=== PATIENT | male | born 1950 | race Two or more races ===

== ENCOUNTER 2020-09-17 00:55 | Inpatient (IN) | payer OTHER, MEDICAID ==
[~2020-09-17] VITALS: Ht 177.8 cm; Wt 80.3 kg
[2020-09-17 02:07] LABS: Basophils # (auto) 0.1 10 ^3/uL (0-0.2); Basophils % (auto) 0.8 % (0.0-2.0); Eosinophils # (auto) 0.2 10 ^3/uL (0-0.8); Eosinophils % (auto) 2.6 % (0.0-7.0); Hematocrit 35.2 % (41.0-53.0); Hemoglobin 12.1 g/dL (13.5-17.5); Lymphocytes # (auto) 2.6 10 ^3/uL (0.4-5.4); Lymphocytes % (auto) 40.1 % (10.0-50.0); Mean Corpuscular Hemoglobin 33.7 pg (28.0-32.0); Mean Corpuscular Hgb Conc. 34.3 g/dL (32.0-36.0); Mean Corpuscular Volume 98.3 fL (80.0-100.0); Monocytes # (auto) 0.6 10 ^3/uL (0-1.3); Monocytes % (auto) 9.2 % (0.0-12.0); Neutrophils # (auto) 3.1 10 ^3/uL (1.6-8.6); Neutrophils % (auto) 47.3 % (37.0-80.0); Nucleated Red Blood Cells % 0.1 %; Platelet Count (auto) 152 10^3/uL (140-450); Red Blood Cells 3.58 10^6/uL (4.5-5.90); Red Cell Distribution Width 12.4 % (11.8-14.3); White Blood Cell 6.6 10^3/uL (4.4-10.8)
[2020-09-17 02:26] LABS: Calcium 9.3 mg/dL (8.5-10.1); Magnesium 2.2 mg/dL (1.6-2.6)
[2020-09-17 02:32] LABS: BUN/Creatinine Ratio 17.8; Bilirubin, Total 0.3 mg/dL (0.2-1.0); Total Protein 8.1 g/dL (6.4-8.2)
[2020-09-17] MEDS ORDERED: ASPirin 325 MG TAB PO ONE (02:45)
[2020-09-17] MEDS ORDERED: FUROSEMIDE 40 MG/4 ML VIAL IV ONE (04:00)
[2020-09-17] MEDS ORDERED: MORPHINE SULF INJ 2 MG/ML SYRINGE 1ML IV PRN (05:30)
[2020-09-17] MEDS ORDERED: NITROGLYCERIN 0.4 MG SL TAB SL PRN (05:30)
[2020-09-17] MEDS ORDERED: ONDANSETRON HCL 4 MG/2 ML VIAL IV PRN (05:30)
[2020-09-17] MEDS ORDERED: DEXTROSE (50%) 50ML SYRG IV PRN (05:30)
[2020-09-17] MEDS ORDERED: ACETAMINOPHEN 325 MG TAB PO PRN (05:30)
[2020-09-17] MEDS: FUROSEMIDE 20 MG/2 ML VIAL IV SCH ×2 (06:00→17:55)
[2020-09-17] MEDS: InsuLIN REG 1unit/0.01ml Soln (100units/ml) SC SCH ×4 (06:00→23:41)
[2020-09-17] MEDS: ACCU-CHEK COMFORT CURVE STRIP VI SCH ×4 (06:00→23:41)
[2020-09-17] MEDS ORDERED: CARVEDILOL 3.125 MG TAB PO SCH (10:00)
[2020-09-17] MEDS: BENAZEPRIL HCL 10 MG TAB PO SCH (10:00)
[2020-09-17] MEDS: PANTOPRAZOLE 40 MG TAB PO SCH (10:16)
[2020-09-17] MEDS: ASPirin 81 mg TAB PO SCH (10:16)
[2020-09-17] MEDS ORDERED: METF-929 PO (10:21)
[2020-09-17] MEDS ORDERED: LORA-622 PO (10:21)
[2020-09-17] MEDS ORDERED: BENA5TAB5 PO (10:21)
[2020-09-17] MEDS ORDERED: ASPI-498 PO (10:21)
[2020-09-17] MEDS ORDERED: TERA10CA36 PO (10:21)
[2020-09-17] MEDS ORDERED: ATOR20TA50 PO (10:21)
[2020-09-17] MEDS ORDERED: CHOL20007 PO (10:21)
[2020-09-17] MEDS ORDERED: APIXABAN 5 MG TAB PO ONE (11:00)
[2020-09-17 20:00] VITALS: BP 102/58
[2020-09-17] MEDS: APIXABAN 5 MG TAB PO SCH (20:57)
[2020-09-17] MEDS: CARVEDILOL 3.125 MG TAB PO SCH (20:57)
[2020-09-17] MEDS: ATORVASTATIN 20 MG TAB PO SCH (20:57)
[2020-09-18] MEDS: ACCU-CHEK COMFORT CURVE STRIP VI SCH ×3 (05:26→18:38)
[2020-09-18] MEDS: InsuLIN REG 1unit/0.01ml Soln (100units/ml) SC SCH ×3 (05:31→18:37)
[2020-09-18] MEDS: FUROSEMIDE 20 MG/2 ML VIAL IV SCH ×2 (05:31→18:33)
[2020-09-18 08:59] LABS: Basophils # (auto) 0 10 ^3/uL (0-0.2); Basophils % (auto) 0.7 % (0.0-2.0); Eosinophils # (auto) 0.1 10 ^3/uL (0-0.8); Eosinophils % (auto) 1.5 % (0.0-7.0); Hematocrit 36.6 % (41.0-53.0); Mean Corpuscular Hemoglobin 32.7 pg (28.0-32.0); Mean Corpuscular Hgb Conc. 32.8 g/dL (32.0-36.0); Mean Corpuscular Volume 99.7 fL (80.0-100.0); Monocytes # (auto) 0.4 10 ^3/uL (0-1.3); Monocytes % (auto) 7.2 % (0.0-12.0); Neutrophils # (auto) 3.3 10 ^3/uL (1.6-8.6); Neutrophils % (auto) 56.6 % (37.0-80.0); Platelet Count (auto) 147 10^3/uL (140-450); Red Blood Cells 3.67 10^6/uL (4.5-5.90); White Blood Cell 5.9 10^3/uL (4.4-10.8)
[2020-09-18 09:00] VITALS: BP 98/62
[2020-09-18] MEDS: ASPirin 81 mg TAB PO SCH (09:07)
[2020-09-18] MEDS: CARVEDILOL 3.125 MG TAB PO SCH ×2 (09:08→22:00)
[2020-09-18] MEDS: APIXABAN 5 MG TAB PO SCH ×2 (09:10→22:00)
[2020-09-18] MEDS: BENAZEPRIL HCL 10 MG TAB PO SCH (09:11)
[2020-09-18] MEDS: PANTOPRAZOLE 40 MG TAB PO SCH (09:13)
[2020-09-18 09:25] LABS: Calcium 8.9 mg/dL (8.5-10.1); Potassium 4.2 mmol/L (3.5-5.1)
[2020-09-18 09:30] LABS: Albumin 3.8 g/dL (3.4-5.0); Bilirubin, Total 0.4 mg/dL (0.2-1.0); Magnesium 2.3 mg/dL (1.6-2.6); Total Protein 8.1 g/dL (6.4-8.2)
[2020-09-18 13:00] VITALS: BP 122/76
[2020-09-18] MEDS ORDERED: CARV6.2551 PO (13:09)
[2020-09-18 13:52] LABS: Alcohol, Urine < 3.0 mg/dL (0-10); Amphetamine Screen, Urine NEGATIVE (NEGATIVE); Barbiturate Scree,Urine NEGATIVE (NEGATIVE); Benzodiazephine Screen, Urine NEGATIVE (NEGATIVE); Cannabinoid Screen, Urine NEGATIVE (NEGATIVE); Cocaine Screen, Urine NEGATIVE (NEGATIVE); Opiate Scree,Urine NEGATIVE (NEGATIVE); Phencyclidine Screen, Urine NEGATIVE (NEGATIVE)
[2020-09-18 17:20] VITALS: BP 109/79
[2020-09-18] MEDS: INSULIN LANTUS (GLARGINE) 1 /0.01ml (100units/ml) SC SCH (22:00)
[2020-09-18] MEDS: ATORVASTATIN 20 MG TAB PO SCH (22:00)
[2020-09-18 22:30] VITALS: BP 122/96
[2020-09-19 05:01] VITALS: BP 112/87
[2020-09-19] MEDS: ACCU-CHEK COMFORT CURVE STRIP VI SCH ×4 (06:27→18:25)
[2020-09-19] MEDS: InsuLIN REG 1unit/0.01ml Soln (100units/ml) SC SCH ×4 (06:41→18:23)
[2020-09-19] MEDS: FUROSEMIDE 20 MG/2 ML VIAL IV SCH ×2 (06:41→18:25)
[2020-09-19 06:57] LABS: Potassium 4.8 mmol/L (3.5-5.1)
[2020-09-19 07:03] LABS: Calcium 9.4 mg/dL (8.5-10.1)
[2020-09-19 09:00] VITALS: BP 121/91
[2020-09-19] MEDS: ASPirin 81 mg TAB PO SCH (11:34)
[2020-09-19] MEDS: CARVEDILOL 3.125 MG TAB PO SCH ×2 (11:35→22:00)
[2020-09-19] MEDS: PANTOPRAZOLE 40 MG TAB PO SCH (11:36)
[2020-09-19] MEDS: BENAZEPRIL HCL 10 MG TAB PO SCH (11:36)
[2020-09-19] MEDS ORDERED: ACETYLCYSTEINE ORAL for CIN 20%(200MG/ML) 4ML PO ONE (12:30)
[2020-09-19 13:00] VITALS: BP 95/68
[2020-09-19 16:47] VITALS: BP 99/68
[2020-09-19] MEDS: ATORVASTATIN 20 MG TAB PO SCH (21:56)
[2020-09-19 22:00] VITALS: BP 92/64
[2020-09-19] MEDS ORDERED: SODIUM CHLORIDE 0.9% 500 ML IV ONE (22:00)
[2020-09-19] MEDS: INSULIN LANTUS (GLARGINE) 1 /0.01ml (100units/ml) SC SCH (22:04)
[2020-09-19] MEDS: ACETYLCYSTEINE ORAL for CIN 20%(200MG/ML) 4ML PO SCH (22:48)
[2020-09-19 23:11] LABS: Urine Bacteria FEW /hpf (None Seen); Urine Blood Negative /uL (Negative); Urine Hyaline Cast FEW /lpf (0 - 2); Urine Mucus FEW (None Seen); Urine Specific Gravity 1.013 (1.001-1.035); Urine WBC 1 /hpf (0 - 3)
[2020-09-19 23:25] LABS: Protein, Urine 8.7 mg/dL (0.0-11.9)
[2020-09-20] MEDS: ACCU-CHEK COMFORT CURVE STRIP VI SCH ×4 (00:25→18:12)
[2020-09-20] MEDS: InsuLIN REG 1unit/0.01ml Soln (100units/ml) SC SCH ×4 (00:34→18:00)
[2020-09-20 04:49] VITALS: BP 100/68
[2020-09-20] MEDS: FUROSEMIDE 20 MG/2 ML VIAL IV SCH ×2 (05:50→17:45)
[2020-09-20 08:37] VITALS: BP 100/78
[2020-09-20 09:42] LABS: Basophils # (auto) 0 10 ^3/uL (0-0.2); Basophils % (auto) 0.8 % (0.0-2.0); Eosinophils # (auto) 0.1 10 ^3/uL (0-0.8); Eosinophils % (auto) 1.9 % (0.0-7.0); Hemoglobin 11.9 g/dL (13.5-17.5); Lymphocytes # (auto) 2.2 10 ^3/uL (0.4-5.4); Lymphocytes % (auto) 35.6 % (10.0-50.0); Mean Corpuscular Hemoglobin 33.5 pg (28.0-32.0); Mean Corpuscular Hgb Conc. 34.1 g/dL (32.0-36.0); Mean Corpuscular Volume 98.3 fL (80.0-100.0); Monocytes # (auto) 0.6 10 ^3/uL (0-1.3); Monocytes % (auto) 9.7 % (0.0-12.0); Neutrophils # (auto) 3.2 10 ^3/uL (1.6-8.6); Nucleated Red Blood Cells % 0.1 %; Platelet Count (auto) 140 10^3/uL (140-450); Red Blood Cells 3.56 10^6/uL (4.5-5.90); Red Cell Distribution Width 12.7 % (11.8-14.3); White Blood Cell 6.2 10^3/uL (4.4-10.8)
[2020-09-20 09:45] LABS: BUN/Creatinine Ratio 25.1; Calcium 8.9 mg/dL (8.5-10.1); Phosphorus 3.9 mg/dL (2.5-4.90)
[2020-09-20] MEDS ORDERED: IODIXANOL 320MG/ML 100ML BTL IV ONE ×3 (09:49→12:07)
[2020-09-20] MEDS ORDERED: LIDOCAINE 2%HCL (LOCAL ANESTH.) INJ 20ML MDV ONE (09:49)
[2020-09-20] MEDS: ASPirin 81 mg TAB PO SCH (10:00)
[2020-09-20] MEDS: BENAZEPRIL HCL 10 MG TAB PO SCH (10:00)
[2020-09-20] MEDS: PANTOPRAZOLE 40 MG TAB PO SCH (10:00)
[2020-09-20] MEDS: CARVEDILOL 3.125 MG TAB PO SCH ×2 (10:00→22:39)
[2020-09-20 10:24] LABS: INR 1.09 (0.9-1.15); Partial Thromboplastin Time 28.2 sec (23.0-31.2)
[2020-09-20] MEDS ORDERED: ANGIOMAX 250 MG VIAL IV ONE (10:41)
[2020-09-20] MEDS ORDERED: VERAPAMIL 2.5MG/ML INJ 2ML VIAL IV ONE (10:41)
[2020-09-20] MEDS ORDERED: HEPARIN SODIUM (PORCINE) 5000 UNITS/ML 1ML VIAL ONE (10:41)
[2020-09-20] MEDS ORDERED: MIDAZOLAM HCL 1MG/1ML-2 ML VIAL ONE (10:42)
[2020-09-20] MEDS ORDERED: SODIUM CHL 0.9% 50 ML ONE (10:42)
[2020-09-20] MEDS ORDERED: fentaNYL CITRATE 100 MCG/2 ML VL ONE (10:42)
[2020-09-20] MEDS ORDERED: ATROPINE SULF 1 MG/10ml SYR ONE (11:18)
[2020-09-20] MEDS ORDERED: TICAGRELOR 90 MG TAB ONE (11:20)
[2020-09-20] MEDS ORDERED: ASPirin 81 mg TAB ONE (11:20)
[2020-09-20 14:00] VITALS: BP 120/96
[2020-09-20 14:30] VITALS: BP 110/77
[2020-09-20 16:58] VITALS: BP 111/79
[2020-09-20] MEDS: ACETYLCYSTEINE ORAL for CIN 20%(200MG/ML) 4ML PO SCH ×2 (17:00→22:40)
[2020-09-20 22:00] VITALS: BP 107/73
[2020-09-20] MEDS: TICAGRELOR 90 MG TAB PO SCH (22:39)
[2020-09-20] MEDS: APIXABAN 2.5 MG TAB PO SCH (22:39)
[2020-09-20] MEDS: ATORVASTATIN 20 MG TAB PO SCH (22:40)
[2020-09-20] MEDS: INSULIN LANTUS (GLARGINE) 1 /0.01ml (100units/ml) SC SCH (22:41)
[2020-09-21 05:36] VITALS: BP 112/78
[2020-09-21] MEDS: FUROSEMIDE 20 MG/2 ML VIAL IV SCH ×2 (05:48→17:33)
[2020-09-21] MEDS: ACCU-CHEK COMFORT CURVE STRIP VI SCH ×5 (05:48→23:56)
[2020-09-21] MEDS: InsuLIN REG 1unit/0.01ml Soln (100units/ml) SC SCH ×5 (05:49→23:56)
[2020-09-21 09:00] VITALS: BP 100/68
[2020-09-21] MEDS: BENAZEPRIL HCL 10 MG TAB PO SCH (10:00)
[2020-09-21] MEDS: TICAGRELOR 90 MG TAB PO SCH ×2 (10:02→23:40)
[2020-09-21] MEDS: PANTOPRAZOLE 40 MG TAB PO SCH (10:04)
[2020-09-21] MEDS: APIXABAN 2.5 MG TAB PO SCH ×2 (10:04→23:55)
[2020-09-21] MEDS: CARVEDILOL 3.125 MG TAB PO SCH ×2 (10:04→23:54)
[2020-09-21 12:32] VITALS: BP 104/74
[2020-09-21 17:00] VITALS: BP 104/68
[2020-09-21 22:00] VITALS: BP 108/66
[2020-09-21] MEDS: INSULIN LANTUS (GLARGINE) 1 /0.01ml (100units/ml) SC SCH (22:00)
[2020-09-21] MEDS: ATORVASTATIN 20 MG TAB PO SCH (23:55)
[2020-09-22 05:00] VITALS: BP 103/70
[2020-09-22] MEDS: InsuLIN REG 1unit/0.01ml Soln (100units/ml) SC SCH ×3 (06:00→17:20)
[2020-09-22] MEDS: ACCU-CHEK COMFORT CURVE STRIP VI SCH ×3 (06:00→17:20)
[2020-09-22] MEDS: FUROSEMIDE 20 MG/2 ML VIAL IV SCH ×2 (06:48→17:21)
[2020-09-22 09:00] VITALS: BP 113/80
[2020-09-22 09:22] LABS: Basophils # (auto) 0 10 ^3/uL (0-0.2); Eosinophils # (auto) 0.4 10 ^3/uL (0-0.8); Lymphocytes # (auto) 0.8 10 ^3/uL (0.4-5.4); Lymphocytes % (auto) 15.6 % (10.0-50.0); Monocytes # (auto) 0.4 10 ^3/uL (0-1.3); Neutrophils # (auto) 3.5 10 ^3/uL (1.6-8.6); White Blood Cell 5.1 10^3/uL (4.4-10.8)
[2020-09-22 09:23] LABS: Basophils % (auto) 0.4 % (0.0-2.0); Eosinophils % (auto) 7.1 % (0.0-7.0); Hematocrit 39.5 % (41.0-53.0); Hemoglobin 13.1 g/dL (13.5-17.5); Mean Corpuscular Hemoglobin 33.9 pg (28.0-32.0); Mean Corpuscular Hgb Conc. 33.1 g/dL (32.0-36.0); Mean Corpuscular Volume 102.6 fL (80.0-100.0); Monocytes % (auto) 7.4 % (0.0-12.0); Neutrophils % (auto) 69.5 % (37.0-80.0); Platelet Count (auto) 145 10^3/uL (140-450); Red Blood Cells 3.85 10^6/uL (4.5-5.90); Red Cell Distribution Width 13.1 % (11.8-14.3)
[2020-09-22] MEDS: TICAGRELOR 90 MG TAB PO SCH ×2 (09:31→22:09)
[2020-09-22] MEDS: APIXABAN 2.5 MG TAB PO SCH ×2 (09:31→22:09)
[2020-09-22] MEDS: CARVEDILOL 3.125 MG TAB PO SCH ×2 (09:31→21:57)
[2020-09-22] MEDS: BENAZEPRIL HCL 10 MG TAB PO SCH (09:32)
[2020-09-22] MEDS: PANTOPRAZOLE 40 MG TAB PO SCH (09:32)
[2020-09-22 09:42] LABS: Calcium 9.2 mg/dL (8.5-10.1); Potassium 4.2 mmol/L (3.5-5.1)
[2020-09-22 13:00] VITALS: BP 98/59
[2020-09-22 17:00] VITALS: BP 91/52
[2020-09-22 22:00] VITALS: BP 92/59
[2020-09-22] MEDS: INSULIN LANTUS (GLARGINE) 1 /0.01ml (100units/ml) SC SCH (22:00)
[2020-09-22] MEDS: ATORVASTATIN 20 MG TAB PO SCH (22:09)
[2020-09-23 05:00] VITALS: BP 91/64
[2020-09-23] MEDS: InsuLIN REG 1unit/0.01ml Soln (100units/ml) SC SCH ×5 (06:00→23:38)
[2020-09-23] MEDS: FUROSEMIDE 20 MG/2 ML VIAL IV SCH ×2 (06:00→16:55)
[2020-09-23] MEDS: ACCU-CHEK COMFORT CURVE STRIP VI SCH ×5 (06:00→23:37)
[2020-09-23 08:32] LABS: Basophils # (auto) 0 10 ^3/uL (0-0.2); Basophils % (auto) 0.2 % (0.0-2.0); Eosinophils # (auto) 0.6 10 ^3/uL (0-0.8); Eosinophils % (auto) 11.5 % (0.0-7.0); Hematocrit 36.3 % (41.0-53.0); Hemoglobin 12.2 g/dL (13.5-17.5); Lymphocytes # (auto) 0.8 10 ^3/uL (0.4-5.4); Mean Corpuscular Hemoglobin 33.3 pg (28.0-32.0); Mean Corpuscular Hgb Conc. 33.7 g/dL (32.0-36.0); Mean Corpuscular Volume 98.8 fL (80.0-100.0); Monocytes # (auto) 0.5 10 ^3/uL (0-1.3); Monocytes % (auto) 8.7 % (0.0-12.0); Neutrophils # (auto) 3.7 10 ^3/uL (1.6-8.6); Neutrophils % (auto) 65.6 % (37.0-80.0); Nucleated Red Blood Cells % 0.1 %; Platelet Count (auto) 150 10^3/uL (140-450); Red Blood Cells 3.68 10^6/uL (4.5-5.90); Red Cell Distribution Width 12.8 % (11.8-14.3); White Blood Cell 5.6 10^3/uL (4.4-10.8)
[2020-09-23 08:51] LABS: BUN/Creatinine Ratio 26.7; Calcium 8.6 mg/dL (8.5-10.1); Potassium 3.9 mmol/L (3.5-5.1)
[2020-09-23 09:00] VITALS: BP 64/64
[2020-09-23] MEDS: TICAGRELOR 90 MG TAB PO SCH ×2 (09:48→21:20)
[2020-09-23] MEDS: APIXABAN 2.5 MG TAB PO SCH ×2 (09:49→21:20)
[2020-09-23] MEDS: CARVEDILOL 3.125 MG TAB PO SCH ×2 (09:49→21:29)
[2020-09-23] MEDS: BENAZEPRIL HCL 10 MG TAB PO SCH (09:49)
[2020-09-23] MEDS: PANTOPRAZOLE 40 MG TAB PO SCH (09:50)
[2020-09-23 13:00] VITALS: BP 103/67
[2020-09-23 16:57] VITALS: BP 90/65
[2020-09-23] MEDS: ATORVASTATIN 20 MG TAB PO SCH (21:20)
[2020-09-23] MEDS: INSULIN LANTUS (GLARGINE) 1 /0.01ml (100units/ml) SC SCH (21:45)
[2020-09-23 22:00] VITALS: BP 105/71
[2020-09-24 05:00] VITALS: BP 100/63
[2020-09-24] MEDS: FUROSEMIDE 20 MG/2 ML VIAL IV SCH (06:06)
[2020-09-24] MEDS: ACCU-CHEK COMFORT CURVE STRIP VI SCH ×2 (06:07→13:21)
[2020-09-24] MEDS: InsuLIN REG 1unit/0.01ml Soln (100units/ml) SC SCH ×2 (06:08→12:00)
[2020-09-24 09:00] VITALS: BP 92/54
[2020-09-24] MEDS: CARVEDILOL 3.125 MG TAB PO SCH (10:00)
[2020-09-24] MEDS: BENAZEPRIL HCL 10 MG TAB PO SCH (10:00)
[2020-09-24 10:30] LABS: Basophils # (auto) 0 10 ^3/uL (0-0.2); Basophils % (auto) 0.2 % (0.0-2.0); Eosinophils # (auto) 0.5 10 ^3/uL (0-0.8); Eosinophils % (auto) 8.4 % (0.0-7.0); Hematocrit 34.8 % (41.0-53.0); Lymphocytes # (auto) 0.8 10 ^3/uL (0.4-5.4); Lymphocytes % (auto) 13.6 % (10.0-50.0); Mean Corpuscular Hemoglobin 33.9 pg (28.0-32.0); Mean Corpuscular Hgb Conc. 34.5 g/dL (32.0-36.0); Mean Corpuscular Volume 98.3 fL (80.0-100.0); Monocytes # (auto) 0.5 10 ^3/uL (0-1.3); Monocytes % (auto) 9.1 % (0.0-12.0); Neutrophils # (auto) 4.1 10 ^3/uL (1.6-8.6); Neutrophils % (auto) 68.7 % (37.0-80.0); Nucleated Red Blood Cells % 0.1 %; Platelet Count (auto) 158 10^3/uL (140-450); Red Blood Cells 3.54 10^6/uL (4.5-5.90); Red Cell Distribution Width 12.6 % (11.8-14.3); White Blood Cell 5.9 10^3/uL (4.4-10.8)
[2020-09-24 10:46] LABS: Calcium 8.9 mg/dL (8.5-10.1); Potassium 3.7 mmol/L (3.5-5.1)
[2020-09-24] MEDS: TICAGRELOR 90 MG TAB PO SCH (11:01)
[2020-09-24] MEDS: APIXABAN 2.5 MG TAB PO SCH (11:01)
[2020-09-24] MEDS: PANTOPRAZOLE 40 MG TAB PO SCH (11:02)
[2020-09-24 13:00] VITALS: BP 109/82
== END 2020-09-24 15:15 | disposition left against medical advice (07) | DRG 246 ==
LOC: ER 00:55 → TELE 00:56 → TELE-WESTW 18:10 → TELE-CENTR 09-23 21:35
PROVIDERS: ADMIT Nurse Practitioner; ATTEND Internal Medicine
PROC: 027034Z Dilation of Coronary Artery, One Artery with Drug-eluting Intraluminal Device, Percutaneous Approach (ICD-10-PCS; principal; 2020-09-20)
PROC: 02703ZZ Dilation of Coronary Artery, One Artery, Percutaneous Approach (ICD-10-PCS; 2020-09-20)
PROC: 4A023N7 Measurement of Cardiac Sampling and Pressure, Left Heart, Percutaneous Approach (ICD-10-PCS; 2020-09-20)
PROC: B211YZZ Fluoroscopy of Multiple Coronary Arteries using Other Contrast (ICD-10-PCS; 2020-09-20)
PROC: B215YZZ Fluoroscopy of Left Heart using Other Contrast (ICD-10-PCS; 2020-09-20)
DX: I21.4 Non-ST elevation (NSTEMI) myocardial infarction (principal); I50.43 Acute on chronic combined systolic (congestive) and diastolic (congestive) heart failure; N17.0 Acute kidney failure with tubular necrosis; I13.0 Hypertensive heart and chronic kidney disease with heart failure and stage 1 through stage 4 chronic kidney disease, or unspecified chronic kidney disease; D68.69 Other thrombophilia; I42.9 Cardiomyopathy, unspecified; Z20.828 Contact with and (suspected) exposure to other viral communicable diseases; I48.91 Unspecified atrial fibrillation; E11.22 Type 2 diabetes mellitus with diabetic chronic kidney disease; E78.5 Hyperlipidemia, unspecified; N40.0 Benign prostatic hyperplasia without lower urinary tract symptoms; I25.10 Atherosclerotic heart disease of native coronary artery without angina pectoris; E66.9 Obesity, unspecified; Z53.29 Procedure and treatment not carried out because of patient's decision for other reasons; N18.32 Chronic kidney disease, stage 3b; Z68.25 Body mass index [BMI] 25.0-25.9, adult; Z79.01 Long term (current) use of anticoagulants; Z79.84 Long term (current) use of oral hypoglycemic drugs; Z87.891 Personal history of nicotine dependence; Z79.899 Other long term (current) drug therapy
CPT/HCPCS: 36415; 71045; 80048; 80053; 80061; 80307; 81001; 82306; 82565; 82570; 82962; 83036; 83735; 83880; 84100; 84156; 84300; 84443; 84484; 84520; 85025; 85379; 85610; 85730; 87426; 92920; 92928; 93005; 93306; 93458; 96374; 97163; 99152; 99153; C1874; C1887; G0378; J1815; J2250; J2405; Q9967

== ENCOUNTER 2020-09-25 12:56 | Inpatient (IN) | payer OTHER, MEDICAID ==
[~2020-09-25] VITALS: Ht 175.3 cm; Wt 79.0 kg
[~2020-09-25 12:56] MED LIST: ASPI-498 PO; ATOR20TA50 PO; BENA5TAB5 PO; CARV6.2551 PO; CHOL20007 PO; LORA-622 PO; METF-929 PO; TERA10CA36 PO
[2020-09-25 17:27] LABS: Basophils # (auto) 0 10 ^3/uL (0-0.2); Basophils % (auto) 0.3 % (0.0-2.0); Eosinophils # (auto) 0.5 10 ^3/uL (0-0.8); Eosinophils % (auto) 8.9 % (0.0-7.0); Hematocrit 35.3 % (41.0-53.0); Lymphocytes # (auto) 1.1 10 ^3/uL (0.4-5.4); Lymphocytes % (auto) 18.8 % (10.0-50.0); Mean Corpuscular Volume 100.1 fL (80.0-100.0); Monocytes # (auto) 0.6 10 ^3/uL (0-1.3); Monocytes % (auto) 9.8 % (0.0-12.0); Neutrophils # (auto) 3.6 10 ^3/uL (1.6-8.6); Neutrophils % (auto) 62.2 % (37.0-80.0); Platelet Count (auto) 145 10^3/uL (140-450); Red Blood Cells 3.53 10^6/uL (4.5-5.90); White Blood Cell 5.8 10^3/uL (4.4-10.8)
[2020-09-25 18:07] LABS: Albumin 3.9 g/dL (3.4-5.0); Anion Gap 9 (5-15); Blood Urea Nitrogen 57 mg/dL (7-18); Calcium 8.6 mg/dL (8.5-10.1); Carbon Dioxide 24 mmol/L (21-32); Chloride 102 mmol/L (98-107); Glucose 276 mg/dL (74-106); Magnesium 2.5 mg/dL (1.6-2.6); Potassium 4.1 mmol/L (3.5-5.1); Sodium 135 mmol/L (136-145)
[2020-09-25 18:22] LABS: Alanine Aminotransferase 27 U/L (16-61); Alkaline Phosphatase 99 U/L (45-117); Aspartate Aminotransferase 11 U/L (15-37); BUN/Creatinine Ratio 19.9; GFR African American 28 mL/min; GFR Non-African American 23 mL/min
[2020-09-25 18:23] LABS: Bilirubin, Total 0.4 mg/dL (0.2-1.0); Total Protein 8.3 g/dL (6.4-8.2)
[2020-09-26] MEDS ORDERED: ACETAMINOPHEN 325 MG TAB PO PRN (06:15)
[2020-09-26] MEDS ORDERED: MORPHINE SULF INJ 2 MG/ML SYRINGE 1ML IV PRN (06:15)
[2020-09-26] MEDS ORDERED: ONDANSETRON HCL 4 MG/2 ML VIAL IV PRN (06:15)
[2020-09-26] MEDS ORDERED: NITROGLYCERIN 0.4 MG SL TAB SL PRN (06:15)
[2020-09-26] MEDS ORDERED: TEMAZEPAM 15 MG CAP PO PRN (06:15)
[2020-09-26] MEDS ORDERED: DEXTROSE (50%) 50ML SYRG IV PRN (06:15)
[2020-09-26] MEDS: ACCU-CHEK COMFORT CURVE STRIP VI SCH ×4 (07:07→22:00)
[2020-09-26] MEDS: InsuLIN REG 1unit/0.01ml Soln (100units/ml) SC SCH ×4 (07:07→22:00)
[2020-09-26] MEDS ORDERED: ASPirin 81 mg TAB PO SCH (10:00)
[2020-09-26] MEDS ORDERED: FUROSEMIDE 40 MG TAB PO SCH (10:00)
[2020-09-26] MEDS: PANTOPRAZOLE 40 MG TAB PO SCH (10:07)
[2020-09-26] MEDS: CARVEDILOL 3.125 MG TAB PO SCH ×3 (10:07→13:49)
[2020-09-26 12:57] LABS: BUN/Creatinine Ratio 24.8; Calcium 8.8 mg/dL (8.5-10.1); Potassium 3.8 mmol/L (3.5-5.1)
[2020-09-26] MEDS: FUROSEMIDE 20 MG/2 ML VIAL IV SCH (18:30)
[2020-09-26 21:30] LABS: INR 1.06 (0.9-1.15); Partial Thromboplastin Time 29.3 sec (23.0-31.2)
[2020-09-26] MEDS: ATORVASTATIN 20 MG TAB PO SCH (22:00)
--- NOTE | 2020-09-26 23:14 | NUR ---
HOSPITALIST PAGED BECAUSE PT'S HEART RATE IS NOW 120. PT IS ASYMPTOMATIC; AND PAIN FREE. CONTACTED PJ CHASE RN TO OBTAIN A TWELVE LEAD EKG MACHINE;.
--- NOTE | 2020-09-26 23:46 | NUR ---
UNABLE TO LOCATE LEAD STICKERS FOR 12 LEAD ADHERANCE;AM CONTACTING ALL DEPTS NOW; PT IS PAIN FREE WITH 120/66 HR 122.
[2020-09-27] VITALS (7 sets, daily range): BP systolic 95–128; BP diastolic 66–83
[2020-09-27 06:03] LABS: Calcium 9.1 mg/dL (8.5-10.1); Potassium 4.3 mmol/L (3.5-5.1)
[2020-09-27 06:06] LABS: BUN/Creatinine Ratio 26.1
[2020-09-27] MEDS: InsuLIN REG 1unit/0.01ml Soln (100units/ml) SC SCH ×4 (06:20→22:37)
[2020-09-27] MEDS: FUROSEMIDE 20 MG/2 ML VIAL IV SCH ×2 (06:21→18:00)
[2020-09-27] MEDS: ACCU-CHEK COMFORT CURVE STRIP VI SCH ×4 (06:22→22:38)
--- NOTE | 2020-09-27 06:47 | NUR ---
PT REFUSED HS DOSE OF INSULIN AND AM DOSE OF INSULIN. STATES HE ONLY TAKES METAFORMIN,NOT INSULIN.WILL PASS ONTO DAYSHIFT RN PHONE CALL TO HOSPITALIST WENT UNANSWERED.
[2020-09-27 07:24] LABS: Basophils # (auto) 0 10 ^3/uL (0-0.2); Lymphocytes # (auto) 1.1 10 ^3/uL (0.4-5.4); Monocytes # (auto) 0.6 10 ^3/uL (0-1.3)
[2020-09-27 07:25] LABS: Basophils % (auto) 0.8 % (0.0-2.0); Eosinophils # (auto) 0.2 10 ^3/uL (0-0.8); Eosinophils % (auto) 4.7 % (0.0-7.0); Hematocrit 32.9 % (41.0-53.0); Hemoglobin 11.2 g/dL (13.5-17.5); Lymphocytes % (auto) 21.3 % (10.0-50.0); Mean Corpuscular Hemoglobin 33.7 pg (28.0-32.0); Mean Corpuscular Volume 99.1 fL (80.0-100.0); Neutrophils # (auto) 3.3 10 ^3/uL (1.6-8.6); Neutrophils % (auto) 62.2 % (37.0-80.0); Nucleated Red Blood Cells % 0.2 %; Platelet Count (auto) 137 10^3/uL (140-450); Red Blood Cells 3.32 10^6/uL (4.5-5.90); Red Cell Distribution Width 13.2 % (11.8-14.3); White Blood Cell 5.3 10^3/uL (4.4-10.8)
--- NOTE | 2020-09-27 09:20 | NUR ---
Yennifer Kay called back to keep patient NPO for AICD placement today.
--- NOTE | 2020-09-27 09:21 | NUR ---
Patient made aware he has orders for nothing by mouth, will give the anti-hypertensive medication, he's scheduled for AICD placement today. Patient is grumpy, insisted he's fausto waiting fro his water. Explained to patient he can have medication w/ sips of water, he's on fluid restriction 1200 ml.
--- NOTE | 2020-09-27 09:39 | NUR ---
Hand Tapper DILIA Torrez called to hold Aspirin and Plavix for patient's AICD placement at PM today, keep patient NPO.
[2020-09-27] MEDS: PANTOPRAZOLE 40 MG TAB PO SCH (09:50)
[2020-09-27] MEDS: CLOPIDOGREL BISULFATE 75 MG TAB PO SCH (09:50)
[2020-09-27] MEDS: ASPirin 81 mg TAB PO SCH (09:50)
[2020-09-27] MEDS ORDERED: CLOPIDOGREL BISULFATE 75 MG TAB PO SCH (10:00)
--- NOTE | 2020-09-27 10:00 | NUR ---
Patient insisted to speak w/ the Business Transformation Manager before he signs the consent for AICD placement. Will call Director Of Revenue Cycle Management.
[2020-09-27] MEDS: CARVEDILOL 3.125 MG TAB PO SCH ×3 (10:16→22:00)
--- NOTE | 2020-09-27 10:18 | NUR ---
Dr. Lai at bedside, explained to patient the need for AICD placement. Patient wants explanation from the Courier Driver before signing the consent for the procedure today.
--- NOTE | 2020-09-27 10:35 | NUR ---
Called Dr. Quiros at [facility] ([phone]). Phone on [employer]. Left a message to call back.
--- NOTE | 2020-09-27 11:06 | NUR ---
Informed Dr. Quiros that patient wants to talk to him regarding AICD placement before he signs the consent. Patient is willing to be transferred to Outsole Tacker but he will only sign the consent when the Hog Man explained the procedure.
--- NOTE | 2020-09-27 11:08 | NUR ---
Dr. Quiros said he will talk to the patient at Epitaxial Reactor Technician regarding AICD placement.
--- NOTE | 2020-09-27 12:07 | NUR ---
Transferred patient via bed, Telemetry pack on, to Gelatin Dynamite Packing Operator. Patient refused to take off his underwear, refused to put on his hospital gown. Hospital gown at bed. Informed Gelatin Dynamite Packing Operator DILIA Torrez. Endorsed patient to DILIA Torrez.
[2020-09-27] MEDS ORDERED: VANCOMYCIN HCL 1000 MG VL ONE (12:30)
[2020-09-27] MEDS ORDERED: diphenhdrAMINE HCL 50 MG/1 ML VL ONE (12:30)
[2020-09-27] MEDS ORDERED: VANCOMYCIN 1GM/250ML 250 ML IV ONE (12:31)
[2020-09-27] MEDS ORDERED: LIDOCAINE 2%HCL (LOCAL ANESTH.) INJ 20ML MDV ONE (13:14)
[2020-09-27] MEDS ORDERED: fentaNYL CITRATE 100 MCG/2 ML VL ONE (14:05)
[2020-09-27] MEDS ORDERED: LIDOCAINE HCL 100 MG/5ML (2%) SYRG INJ IV ONE (14:07)
[2020-09-27] MEDS ORDERED: NALOXONE HCL 0.4 MG/ML VIAL ONE (14:18)
[2020-09-27] MEDS: ceFAZolin 1GM/50ML 50 ML IV SCH ×2 (16:15→23:43)
--- NOTE | 2020-09-27 16:59 | NUR ---
Received report From Brick Kiln Worker DILIA Torrez that patient had V Tach during the procedure, received a shock; patient is confused, argumentative; continuously monitoring at pharmaceutical laboratory technician at this time.
[2020-09-27] MEDS ORDERED: DOBUTamine 1000MCG/ML 250 ML IV ONE (17:11)
[2020-09-27] MEDS ORDERED: DOBUTamine 1000MCG/ML 250 ML IV SCH (17:15)
[2020-09-27] MEDS: DOBUTamine 1000MCG/ML 250 ML IV SCH (17:31)
--- NOTE | 2020-09-27 18:21 | NUR ---
Received another report from Hospital Coordinator DILIA Torrez that patient c/o difficulty breathing, placed on simple mask @ 5 LPM, on Dobutamine drip, SBP in the 120s; continuous monitoring at Hospital Coordinator.
[2020-09-27] MEDS ORDERED: FUROSEMIDE 20 MG/2 ML VIAL IV ONE (18:45)
--- NOTE | 2020-09-27 18:58 | NUR ---
Received another report from Shingler DILIA Torrez that patient's current BP = 121/77, on simple mask w/ O2 Sat = 100%, continuous monitoring at Shingler. Will give report to restaurant shift leader DILIA Longoria.
--- NOTE | 2020-09-27 19:00 | NUR ---
Report given to DILIA Longoria that patient still at Transition Nurse, DILIA Torrez will call her when the patient is ready for transfer back to room. Showed to Swati that patient's cellphone and amr physician is in the patient's belongings bag placed in the cabinet (left corner) w/ other belongings.
--- NOTE | 2020-09-27 19:30 | NUR ---
PT. ARRIVED FROM CATH. LAB. PT. SLEEPY BUT AROUSABLE, WITH DOBUTAMINE DRIP INFUSING WELL, PT. IN STABLE CONDITION, DRESSING ON LT. UPPER CHEST DRY AND INTACT, WITH SLING, TO KEEP MONITOR.
[2020-09-27] MEDS: ATORVASTATIN 20 MG TAB PO SCH ×2 (21:51→22:00)
--- NOTE | 2020-09-28 01:01 | NUR ---
PT. REFUSED TO WEAR THE SLING, AND 0XYGEN, REPOSITIONED PT. ON RT. SIDE, TO KEEP MONITOR.
[2020-09-28] MEDS: DOBUTamine 1000MCG/ML 250 ML IV SCH ×2 (03:25→14:36)
[2020-09-28 05:01] VITALS: BP 142/90
[2020-09-28] MEDS: FUROSEMIDE 20 MG/2 ML VIAL IV SCH (05:45)
[2020-09-28] MEDS: InsuLIN REG 1unit/0.01ml Soln (100units/ml) SC SCH ×2 (06:14→11:30)
[2020-09-28] MEDS: ACCU-CHEK COMFORT CURVE STRIP VI SCH ×2 (06:15→11:30)
--- NOTE | 2020-09-28 07:10 | NUR ---
OPENING SHIFT NOTE Assumed care of patient from night baker RN. Patient is alert and oriented x4, no signs of distress noted, denies pain. Patient refusing to wear the sling and oxygen, was educated on the importance of the sling and continued to refuse. He was updated on the plan of care and verbalized understanding. Bed is locked, in the lowest position, side rails are up x2 and call light is in reach. He was encouraged to call for assistance as needed.
--- NOTE | 2020-09-28 08:17 | NUR ---
PATIENT REFUSING BREAKFAST AND VITALS. He was educated on the importance of both and continued to refused. Will continue to educate.
--- NOTE | 2020-09-28 08:59 | NUR ---
Report given to Jadyn DOBBS
--- NOTE | 2020-09-28 09:01 | NUR ---
RECEIVED REPORT FROM DILIA MAYERS. PATIENT ASSESSED. EDUCATED PATIENT ON NEED FOR VITAL SIGNS AT THIS TIME. PATIENT ALLOWED THIS RN TO TAKE BP AT THIS TIME.
[2020-09-28] MEDS: ASPirin 81 mg TAB PO SCH (09:24)
[2020-09-28] MEDS: CARVEDILOL 3.125 MG TAB PO SCH (09:24)
[2020-09-28] MEDS: CLOPIDOGREL BISULFATE 75 MG TAB PO SCH (09:25)
[2020-09-28] MEDS: PANTOPRAZOLE 40 MG TAB PO SCH (09:25)
--- NOTE | 2020-09-28 09:27 | NUR ---
PATIENT AMBULATED TO THE BATHROOM. PATIENT EDUCATED TO CALL RN WHEN FINISHED.
--- NOTE | 2020-09-28 09:49 | NUR ---
PATIENT REFUSING TELE BOX AND ARM SLING AT THIS TIME. PATIENT EDUCATED ON NEED FOR THESE ITEMS, PATIENT STILL REFUSING.
[2020-09-28 10:53] VITALS: BP 115/81
--- NOTE | 2020-09-28 12:24 | NUR ---
PATIENT REFUSING TELE BOX AND SLING AT THIS TIME.
--- NOTE | 2020-09-28 15:56 | NUR ---
IV removal: BOTH IVs DC'd with clean sterile technique, catheter fully intact. Pressure dressing applied to site. Patient tolerated well.
--- NOTE | 2020-09-28 16:12 | NUR ---
Discharge instructions given as ordered. Encourage to follow up with PMD as instructed. All questions and concerns addressed. Patient verbalized understanding. Medication reconciliation form completed and copy given to patient. IV removed with catheter intact, pressure dressing applied, oneill catheter removed. Telemetry unit returned to ICU. Patient requested to be taken to lobby via wheelchair with all personal belongings, to wait for family. No distress noted at time of departure.
== END 2020-09-28 16:12 | disposition home or self-care (01) | DRG 226 ==
LOC: EDBD 12:56 → ER 12:56 → TELE 12:57 → TELE-CENTR 09-26 22:06
PROVIDERS: ADMIT Nurse Practitioner; ATTEND Internal Medicine
PROC: 0JH608Z Insertion of Defibrillator Generator into Chest Subcutaneous Tissue and Fascia, Open Approach (ICD-10-PCS; principal; 2020-09-27)
PROC: 02HK3KZ Insertion of Defibrillator Lead into Right Ventricle, Percutaneous Approach (ICD-10-PCS; 2020-09-27)
PROC: 02H63KZ Insertion of Defibrillator Lead into Right Atrium, Percutaneous Approach (ICD-10-PCS; 2020-09-27)
DX: I13.0 Hypertensive heart and chronic kidney disease with heart failure and stage 1 through stage 4 chronic kidney disease, or unspecified chronic kidney disease (principal); J96.00 Acute respiratory failure, unspecified whether with hypoxia or hypercapnia; I50.23 Acute on chronic systolic (congestive) heart failure; N17.0 Acute kidney failure with tubular necrosis; E11.65 Type 2 diabetes mellitus with hyperglycemia; N18.30 Chronic kidney disease, stage 3 unspecified; D63.8 Anemia in other chronic diseases classified elsewhere; I48.91 Unspecified atrial fibrillation; E78.5 Hyperlipidemia, unspecified; I08.0 Rheumatic disorders of both mitral and aortic valves; I25.5 Ischemic cardiomyopathy; E11.22 Type 2 diabetes mellitus with diabetic chronic kidney disease; I25.10 Atherosclerotic heart disease of native coronary artery without angina pectoris; Z20.828 Contact with and (suspected) exposure to other viral communicable diseases; Z79.899 Other long term (current) drug therapy; Z91.19 Patient's noncompliance with other medical treatment and regimen; Z98.61 Coronary angioplasty status
CPT/HCPCS: 36415; 71045; 80048; 80053; 82962; 83735; 83880; 84484; 85025; 85610; 85730; 87081; 87426; 93005; A4565; G0378; J0690; J1815; J2405

== ENCOUNTER → 2020-11-07 | Outpatient (CLI) | payer OTHER, MEDICAID | END | disposition home or self-care (01) | LOC: Rad HDHVI 12:56 | PROVIDERS: ATTEND Internal Medicine Cardiovascular Disease | DX: I25.10 Atherosclerotic heart disease of native coronary artery without angina pectoris (principal); I10 Essential (primary) hypertension | CPT/HCPCS: 93306 ==

== ENCOUNTER 2021-01-20 15:12 | Inpatient (IN) | payer OTHER, MEDICAID ==
[~2021-01-20] VITALS: Ht 175.3 cm; Wt 79.0 kg
[~2021-01-20 15:12] MED LIST changes: -BENA5TAB5 PO; +BENA5TAB9 PO
[2021-01-20] MEDS ORDERED: SODIUM CHLORIDE 0.9% 1,000 ML IV ONE ×2 (15:30)
[2021-01-20 16:47] LABS: Basophils # (auto) 0 10 ^3/uL (0-0.2); Basophils % (auto) 0.4 % (0.0-2.0); Eosinophils # (auto) 0 10 ^3/uL (0-0.8); Hematocrit 31.3 % (41.0-53.0); Hemoglobin 10.5 g/dL (13.5-17.5); Lymphocytes # (auto) 0.8 10 ^3/uL (0.4-5.4); Lymphocytes % (auto) 7.3 % (10.0-50.0); Mean Corpuscular Hgb Conc. 33.7 g/dL (32.0-36.0); Mean Corpuscular Volume 97.9 fL (80.0-100.0); Monocytes # (auto) 0.6 10 ^3/uL (0-1.3); Monocytes % (auto) 5.9 % (0.0-12.0); Neutrophils # (auto) 9.5 10 ^3/uL (1.6-8.6); Neutrophils % (auto) 86.4 % (37.0-80.0); Red Cell Distribution Width 14.5 % (11.8-14.3)
[2021-01-20 17:00] LABS: Albumin 3.3 g/dL (3.4-5.0); Anion Gap 12 (5-15); Blood Urea Nitrogen 30 mg/dL (7-18); Calcium 8.5 mg/dL (8.5-10.1); Carbon Dioxide 18 mmol/L (21-32); Chloride 107 mmol/L (98-107); Glucose 214 mg/dL (74-106); Potassium 4.6 mmol/L (3.5-5.1); Sodium 137 mmol/L (136-145)
[2021-01-20 17:03] LABS: Lactic Acid w/Reflex 2.5 mmol/L (0.4-2.0)
[2021-01-20 17:06] LABS: Alanine Aminotransferase 131 U/L (16-61); Alkaline Phosphatase 76 U/L (45-117); Aspartate Aminotransferase 204 U/L (15-37); BUN/Creatinine Ratio 15.8; Bilirubin, Total 1.5 mg/dL (0.2-1.0); Blood Alcohol < 3.0 mg/dL (0-5); GFR African American 45 mL/min; GFR Non-African American 37 mL/min; Total Protein 7.3 g/dL (6.4-8.2)
[2021-01-20] MEDS ORDERED: FUROSEMIDE 20 MG/2 ML VIAL IV ONE (17:15)
[2021-01-20] MEDS ORDERED: ENOXAPARIN SOD 80 MG/0.8ML SYRINGE SC ONE (17:30)
[2021-01-20] MEDS ORDERED: DEXTROSE (50%) 50ML SYRG IV PRN (19:30)
[2021-01-20] MEDS ORDERED: ONDANSETRON HCL 4 MG/2 ML VIAL IV PRN (19:30)
[2021-01-20] MEDS ORDERED: MORPHINE SULFATE INJECTION 2 MG/ML SYRG IV PRN (19:30)
[2021-01-20] MEDS ORDERED: ACETAMINOPHEN 500 MG TAB PO PRN (19:30)
[2021-01-20] MEDS ORDERED: hydrALAZINE HCL 20 MG/ML VL IV PRN (19:30)
[2021-01-20] MEDS ORDERED: HYDROcodone-ACET 5/325MG TAB PO PRN (19:30)
[2021-01-20] MEDS ORDERED: NITROGLYCERIN 0.4 MG SL TAB SL PRN (19:30)
[2021-01-20] MEDS: ATORVASTATIN 20 MG TAB PO SCH (22:45)
[2021-01-20] MEDS: InsuLIN REG 1unit/0.01ml Soln (100units/ml) SC SCH (22:45)
[2021-01-20] MEDS: ACCU-CHEK COMFORT CURVE STRIP VI SCH (22:45)
[2021-01-20] MEDS: CARVEDILOL 3.125 MG TAB PO SCH (22:45)
[2021-01-20 23:30] VITALS: BP 120/69
[2021-01-21 05:00] VITALS: BP 97/60
[2021-01-21 05:57] LABS: Basophils # (auto) 0.1 10 ^3/uL (0-0.2); Basophils % (auto) 0.6 % (0.0-2.0); Eosinophils # (auto) 0 10 ^3/uL (0-0.8); Eosinophils % (auto) 0.1 % (0.0-7.0); Hematocrit 31.6 % (41.0-53.0); Hemoglobin 10.9 g/dL (13.5-17.5); Lymphocytes # (auto) 1.5 10 ^3/uL (0.4-5.4); Lymphocytes % (auto) 16.3 % (10.0-50.0); Mean Corpuscular Hemoglobin 33.5 pg (28.0-32.0); Mean Corpuscular Hgb Conc. 34.5 g/dL (32.0-36.0); Mean Corpuscular Volume 97.2 fL (80.0-100.0); Monocytes # (auto) 0.8 10 ^3/uL (0-1.3); Monocytes % (auto) 9.2 % (0.0-12.0); Neutrophils # (auto) 6.8 10 ^3/uL (1.6-8.6); Neutrophils % (auto) 73.8 % (37.0-80.0); Nucleated Red Blood Cells % 0.1 %; Red Blood Cells 3.25 10^6/uL (4.5-5.90); White Blood Cell 9.2 10^3/uL (4.4-10.8)
[2021-01-21 06:07] LABS: INR 1.19 (0.9-1.15); Partial Thromboplastin Time 37.3 sec (23.0-31.2)
[2021-01-21 06:14] LABS: Calcium 8.5 mg/dL (8.5-10.1)
[2021-01-21 06:20] LABS: BUN/Creatinine Ratio 20.6
[2021-01-21] MEDS: ACCU-CHEK COMFORT CURVE STRIP VI SCH ×4 (06:32→21:52)
[2021-01-21] MEDS: InsuLIN REG 1unit/0.01ml Soln (100units/ml) SC SCH ×4 (06:36→21:52)
[2021-01-21 08:00] VITALS: BP 106/71
[2021-01-21 09:00] VITALS: BP 106/71
[2021-01-21 09:13] LABS: Urine Bacteria FEW /hpf (None Seen); Urine Blood TRACE /uL (Negative); Urine Hyaline Cast MOD /lpf (0 - 2); Urine Mucus FEW (None Seen); Urine Specific Gravity 1.017 (1.001-1.035); Urine WBC 70 /hpf (0 - 3)
[2021-01-21 09:26] LABS: Amphetamine Screen, Urine NEGATIVE (NEGATIVE); Barbiturate Scree,Urine NEGATIVE (NEGATIVE); Benzodiazephine Screen, Urine NEGATIVE (NEGATIVE); Cannabinoid Screen, Urine NEGATIVE (NEGATIVE); Cocaine Screen, Urine NEGATIVE (NEGATIVE); Opiate Scree,Urine NEGATIVE (NEGATIVE); Phencyclidine Screen, Urine NEGATIVE (NEGATIVE)
[2021-01-21] MEDS: FUROSEMIDE 20 MG/2 ML VIAL IV SCH (09:38)
[2021-01-21] MEDS: ASPirin-EC 81 mg tab PO SCH (09:38)
[2021-01-21] MEDS: FAMOTIDINE 20 MG TAB PO SCH (09:38)
[2021-01-21] MEDS: CLOPIDOGREL BISULFATE 75 MG TAB PO SCH (09:39)
[2021-01-21] MEDS: CARVEDILOL 3.125 MG TAB PO SCH ×2 (09:39→21:50)
[2021-01-21] MEDS: BENAZEPRIL HCL 10 MG TAB PO SCH (09:39)
[2021-01-21] MEDS ORDERED: levoFLOXacin 500MG 100 ML IV SCH (10:00)
[2021-01-21] MEDS ORDERED: metOLazone 5 MG TAB PO ONE (11:30)
[2021-01-21 13:00] VITALS: BP 91/68
[2021-01-21] MEDS: DOBUTamine 1000MCG/ML 250 ML IV SCH (14:32)
[2021-01-21 17:00] VITALS: BP 123/65
[2021-01-21 22:00] VITALS: BP 100/49
[2021-01-21] MEDS: ATORVASTATIN 20 MG TAB PO SCH (22:43)
[2021-01-22] MEDS: DOBUTamine 1000MCG/ML 250 ML IV SCH ×2 (00:15→10:09)
[2021-01-22 05:00] VITALS: BP 100/54
[2021-01-22] MEDS: ACCU-CHEK COMFORT CURVE STRIP VI SCH ×3 (06:34→17:04)
[2021-01-22] MEDS: InsuLIN REG 1unit/0.01ml Soln (100units/ml) SC SCH ×3 (06:35→17:04)
[2021-01-22 06:45] LABS: Basophils # (auto) 0 10 ^3/uL (0-0.2); Basophils % (auto) 0.6 % (0.0-2.0); Eosinophils # (auto) 0.1 10 ^3/uL (0-0.8); Eosinophils % (auto) 1.6 % (0.0-7.0); Hematocrit 32.9 % (41.0-53.0); Hemoglobin 11.3 g/dL (13.5-17.5); Lymphocytes # (auto) 1.1 10 ^3/uL (0.4-5.4); Lymphocytes % (auto) 15.8 % (10.0-50.0); Mean Corpuscular Hemoglobin 33.3 pg (28.0-32.0); Mean Corpuscular Hgb Conc. 34.2 g/dL (32.0-36.0); Mean Corpuscular Volume 97.5 fL (80.0-100.0); Monocytes # (auto) 0.7 10 ^3/uL (0-1.3); Monocytes % (auto) 9.5 % (0.0-12.0); Neutrophils # (auto) 5.1 10 ^3/uL (1.6-8.6); Neutrophils % (auto) 72.5 % (37.0-80.0); Nucleated Red Blood Cells % 0.2 %; Red Blood Cells 3.38 10^6/uL (4.5-5.90); Red Cell Distribution Width 14.3 % (11.8-14.3)
[2021-01-22 07:08] LABS: BUN/Creatinine Ratio 22.1; Calcium 8.4 mg/dL (8.5-10.1); Magnesium 2.1 mg/dL (1.6-2.6); Potassium 3.6 mmol/L (3.5-5.1)
[2021-01-22 09:00] VITALS: BP 127/53
[2021-01-22] MEDS ORDERED: levoFLOXacin 250MG 50 ML IV SCH (10:00)
[2021-01-22] MEDS: FAMOTIDINE 20 MG TAB PO SCH (10:04)
[2021-01-22] MEDS: CLOPIDOGREL BISULFATE 75 MG TAB PO SCH (10:05)
[2021-01-22] MEDS: CARVEDILOL 3.125 MG TAB PO SCH (10:06)
[2021-01-22] MEDS: ASPirin-EC 81 mg tab PO SCH (10:08)
[2021-01-22] MEDS: BENAZEPRIL HCL 10 MG TAB PO SCH (10:08)
[2021-01-22] MEDS: FUROSEMIDE 20 MG/2 ML VIAL IV SCH (10:08)
[2021-01-22 13:10] VITALS: BP 119/57
[2021-01-22 17:35] VITALS: BP 119/57
== END 2021-01-22 18:35 | disposition home or self-care (01) | DRG 280 ==
LOC: EDBD 15:12 → ER 15:12 → TELE 19:28 → TELE-WESTW 23:03
PROVIDERS: ADMIT Nurse Practitioner Acute Care; ATTEND Internal Medicine
DX: I13.0 Hypertensive heart and chronic kidney disease with heart failure and stage 1 through stage 4 chronic kidney disease, or unspecified chronic kidney disease (principal); I21.4 Non-ST elevation (NSTEMI) myocardial infarction; I50.43 Acute on chronic combined systolic (congestive) and diastolic (congestive) heart failure; I25.10 Atherosclerotic heart disease of native coronary artery without angina pectoris; D72.829 Elevated white blood cell count, unspecified; D63.8 Anemia in other chronic diseases classified elsewhere; E11.22 Type 2 diabetes mellitus with diabetic chronic kidney disease; I25.5 Ischemic cardiomyopathy; Z79.4 Long term (current) use of insulin; Z82.49 Family history of ischemic heart disease and other diseases of the circulatory system; Z83.3 Family history of diabetes mellitus; Z95.5 Presence of coronary angioplasty implant and graft; Z95.810 Presence of automatic (implantable) cardiac defibrillator; Z79.899 Other long term (current) drug therapy; N18.32 Chronic kidney disease, stage 3b; E78.5 Hyperlipidemia, unspecified; Z20.822 Contact with and (suspected) exposure to COVID-19; B95.2 Enterococcus as the cause of diseases classified elsewhere
CPT/HCPCS: 36415; 70450; 71045; 80048; 80053; 80307; 80320; 81001; 82140; 82962; 83036; 83605; 83735; 83880; 84484; 85025; 85610; 85730; 86141; 87040; 87086; 87088; 87186; 87426; 93005; 96361; 96365; 96375; 99291; G0378; J1815; J1956